=== PATIENT | male | born 1960 | race Caucasian/White ===

== ENCOUNTER 2019-05-11 09:07 | Emergency (ER) | payer OTHER ==
[2019-05-11 09:22] VITALS: BP 181/103
--- NOTE | 2019-05-11 09:57 | UC ---
Bite Injury/Animal HPI - HPI Summary HPI Summary: 59-year-old male comes in with a chief complaint of a tick bite. For 2 weeks ago he had a tick on his right chest wall. Took it out and it developed a circular erythematous rash around it. Since that time is developed joint aches. The worst headache is in the right elbow. No fevers. He has had some eye discharge of both eyes primarily on the left side. Minimal upper respiratory tract infection symptoms. - History of Current Complaint Chief Complaint: UCGeneralIllness Stated Complaint: TICK BITE Time Seen by Provider: 05/11/19 09:27 Pain Intensity: 0 - Allergies/Home Medications Allergies/Adverse Reactions: Allergies Allergy/AdvReac Type Severity Reaction Status Date / Time Penicillins Allergy Unknown Verified 05/11/19 09:14 Reaction Details PMH/Surg Hx/FS Hx/Imm Hx Previously Healthy: Yes Cardiovascular History: Hypertension - Surgical History Surgical History: Yes Surgery Procedure, Year, and Place: HYDROCELE AT 1 YEAR - Family History Known Family History: Positive: Non-Contributory - Social History Alcohol Use: Rare Substance Use Type: None Smoking Status (MU): Heavy Every Day Tobacco Smoker Amount Used/How Often: 1 PPD Review of Systems All Other Systems Reviewed And Are Negative: Yes Constitutional: Positive: Negative Skin: Positive: Other - SEE HPI Eyes: Positive: Drainage, Eye Redness ENT: Positive: Negative Respiratory: Positive: Negative Cardiovascular: Positive: Negative Gastrointestinal: Positive: Negative Motor: Positive: Negative Neurovascular: Positive: Negative Musculoskeletal: Positive: Arthralgia Neurological: Positive: Negative Psychological: Positive: Negative Is Patient Immunocompromised?: No Physical Exam Triage Information Reviewed: Yes Appearance: Well-Appearing, No Pain Distress, Well-Nourished Vital Signs: Initial Vital Signs Temp 98.6 F 05/11/19 09:15 Pulse 95 05/11/19 09:15 Resp 16 05/11/19 09:15 BP 181/103 05/11/19 09:15 Pulse Ox 100 05/11/19 09:15 Vital Signs Reviewed: Yes Eye Exam: Normal Eyes: Positive: Conjunctiva Clear ENT: Negative: Nasal drainage Neck: Positive: Supple Respiratory: Positive: Lungs clear, Normal breath sounds, No respiratory distress Cardiovascular: Positive: RRR Musculoskeletal: Positive: Strength Intact, ROM Intact, Other: - Patient reports tenderness to range of motion of the right elbow but he does have full range of motion full-strength in the right elbow. Neurological: Positive: Alert, Muscle Tone Normal Psychological: Positive: Age Appropriate Behavior Skin: Positive: Other - On the right chest there is a 10 cm diameter area of erythema that is blanching. Bite Injury Course/Dx - Course Course Of Treatment: Patient has a rash on the right chest where the tick bite was. Is not bull's- eye appearance however the patient has symptoms of Lyme disease therefore we'll treat with doxycycline 100 mg by mouth twice a day for 14 days. He also is having right elbow pain and generalized body aches. My plan at this time is to treat for Lyme disease as long as all the body aches go away there would be no further need for investigation of the arthralgias. He can take ibuprofen as needed. If with treatment the elbow pain or other joint aches don't get better he is given need further evaluation from his primary care physician. Conjunctivitis is probably unrelated to the tick bite and I'm treating that with tobramycin. Lyme screen was drawn today. Patient's he reevaluated if not improving or worse or any questions or concerns. - Differential Dx/Diagnosis Provider Diagnosis: Tick bite of chest wall, Lyme disease, Conjunctivitis Discharge ED - Sign-Out/Discharge Documenting (check all that apply): Patient Departure All imaging exams completed and their final reports reviewed: No Studies - Discharge Plan Condition: Stable Disposition: HOME Prescriptions: DOXYcycline CAP(*) [DOXYcycline 100MG CAP(*)] 100 mg PO BID #28 cap Tobramycin 0.3% OPHTH.KAMILLE* 1 drop LEFT EYE Q4H #1 btl Patient Education Materials: Lyme Disease (ED), Tick Bite (ED), Conjunctivitis (ED) Referrals: [facility] [place] [facility]YS[facility]IAN REFERRAL [Outside] Additional Instructions: FOLLOW UP WITH YOUR DOCTOR IF NOT COMPLETELY IMPROVED. GET RECHECKED SOONER IF YOUR CONDITION DOES NOT IMPROVE OR WORSENS; FEVERS, YOU FEEL ILL OR ANY QUESTIONS OR CONCERNS. - Billing Disposition and Condition Condition: STABLE Disposition: Home
--- NOTE | 2019-05-17 10:34 | UC ---
- Progress Note Progress Note: RN to call pt. Lyme testing per 05/11/19 negative. Recommend schedule f/u with pcp in the next week or two if possible. May need repeat testing much further down the road. Seek medical attention for worse or new problems in the meantime. OK to continue doxycycline unless otherwise advised by pcp. Course/Dx - Diagnoses Provider Diagnoses: Tick bite of chest wall, Lyme disease, Conjunctivitis Discharge ED - Sign-Out/Discharge Documenting (check all that apply): Post-Discharge Follow Up All imaging exams completed and their final reports reviewed: No Studies - Discharge Plan Condition: Stable Disposition: HOME Prescriptions: DOXYcycline CAP(*) [DOXYcycline 100MG CAP(*)] 100 mg PO BID #28 cap Tobramycin 0.3% OPHTH.KAMILLE* 1 drop LEFT EYE Q4H #1 btl Patient Education Materials: Lyme Disease (ED), Tick Bite (ED), Conjunctivitis (ED) Referrals: [facility] [place] PH[facility]IAN REFERRAL [Outside] Additional Instructions: FOLLOW UP WITH YOUR DOCTOR IF NOT COMPLETELY IMPROVED. GET RECHECKED SOONER IF YOUR CONDITION DOES NOT IMPROVE OR WORSENS; FEVERS, YOU FEEL ILL OR ANY QUESTIONS OR CONCERNS. - Billing Disposition and Condition Condition: STABLE Disposition: Home
== END 2019-05-11 10:17 | disposition home or self-care (01) ==
LOC: UCEAST 09:07
DX: S20.361A Insect bite (nonvenomous) of right front wall of thorax, initial encounter (principal); A69.20 Lyme disease, unspecified; H10.9 Unspecified conjunctivitis; I10 Essential (primary) hypertension; F17.210 Nicotine dependence, cigarettes, uncomplicated; M25.521 Pain in right elbow; Z88.0 Allergy status to penicillin; W57.XXXA Bitten or stung by nonvenomous insect and other nonvenomous arthropods, initial encounter; Y92.9 Unspecified place or not applicable
CPT/HCPCS: 36415; 86617; 86618; 99202; G0463